=== PATIENT | female | born 1970 | race Caucasian/White ===

== ENCOUNTER 2022-08-04 16:50 | Observation (INO) | payer BC, SELFPAY ==
--- NOTE | ~2022-08-04 | CT_ITS ---
EXAMINATION: CT brain wo con DATE: 08/04/2022 17:49 INDICATION: left facial droop, slurred speech, LKN unknown . TECHNIQUE: Computed tomography (CT) of the head was performed without intravenous contrast. The mA wa s adjusted according to patient size. Iterative reconstruction technique was employed. The dose-lengt h product was 605.33 mGy-cm. COMPARISON: None. FINDINGS: No acute intracranial hemorrhage or extra-axial fluid collection. No hydrocephalus, mass, or herniation. No acute ischemic infarct. Unremarkable dural venous sinus attenuation. No acute osseous abnormality. Right temporal craniotomy. The aerated spaces are clear. Encephalomalacia and scattered punctate calcifications involving the white matter of the right fronta l lobe, right insula, and right caudate head/basal ganglia, presumably related to postsurgical/post t herapeutic changes. IMPRESSION: No definite acute intracranial process. Presumed postsurgical/post therapeutic changes in the right f rontal lobe, right insular white matter, and right basal ganglia. Sensitivity would be increased if o utside studies are available for comparison. Consider MRI of the brain without and with contrast for better evaluation of subtle acute disease and/or recurrent tumor. Reviewed, dictated and finalized at location K. IMPRESSION: No definite acute intracranial process. Presumed postsurgical/post therapeutic changes in the right frontal lobe, right insular white matter, and right basal ganglia. Sensitivity would be increased if outside studies are available for co mparison. Consider MRI of the brain without and with contrast for better evalua tion of subtle acute disease and/or recurrent tumor.
--- NOTE | ~2022-08-04 | XR_ITS ---
EXAMINATION: XR chest 1V Exam Date/Time: 08/04/2022 17:44 CDT HISTORY: Suspected CVA. No chest complaints. Comparison: None available. RESULT: Lines, tubes, and devices: None. Lungs and pleura: Patient is rotated to the left. Clear. Cardiomediastinal silhouette: Unremarkable. Other: No acute osseous or upper abdominal finding. IMPRESSION: No acute cardiopulmonary process. Reviewed, dictated and finalized at location K.
--- NOTE | ~2022-08-04 | CT_ITS ---
EXAMINATION: CTA brain carotid DATE: 08/04/2022 22:29 INDICATION: Left facial weakness. Dysarthria. TECHNIQUE: Computed tomographic angiography (CTA) of the head was performed with 100 mL Omnipaque-350 intravenous contrast. CTA of the neck was performed with intravenous contrast. Automated exposure co ntrol and iterative reconstruction technique were employed. The dose-length product was 1170.02 mGy-c m. Maximum intensity projection and volume rendered 3D-reconstructions were created by the techncheyenne alex on a separate workstation. COMPARISON: Head CT 08/04/2022 FINDINGS: HEAD CTA: There is chronic encephalomalacia in the right frontal lobe and right insula. There is an i nfarct in the right basal ganglia, likely subacute or chronic. There is no intracranial hemorrhage or abnormal mass lesion. There is ex vacuo dilatation of anterior body and frontal horn of right latera l ventricle. The paranasal sinuses are clear. The orbits are normal. The mastoid air cells are normal . There are changes of right-sided craniotomy. The vertebral arteries are codominant. There is no sig nificant stenosis of basilar artery or the posterior cerebral arteries. Right posterior communicating artery is normal. A left posterior communicating arteries are not identified. There is no significan t stenosis of the intracranial internal carotid arteries. Anterior communicating artery is normal. Th ere is no aneurysm. NECK CTA: There are no pathologically enlarged lymph nodes. There is no significant stenosis of the v ertebral arteries. There is plaque in the proximal internal carotid arteries. There is 0% stenosis of the proximal right internal carotid artery relative to normal distal artery lumen diameter (NASCET c riteria). There is 0% stenosis of the proximal left internal carotid artery relative to normal distal artery lumen diameter. There is moderate cervical spondylosis. IMPRESSION: 1. Chronic encephalomalacia in the right frontal lobe and right insula. Infarct in the right basal ga nglia, likely subacute or chronic. 2. No aneurysm or significant intracranial arterial stenosis. 3. 0% stenosis of the proximal internal carotid arteries relative to normal distal artery lumen diame ters (NASCET criteria). Reviewed, dictated and finalized at location A. IMPRESSION: 1. Chronic encephalomalacia in the right frontal lobe and right insula. Infarct in the right basal ganglia, likely subacute or chronic. 2. No aneurysm or significant intracranial arterial stenosis. 3. 0% stenosis of the proximal internal carotid arteries relative to normal dis maggi artery lumen diameters (NASCET criteria).
--- NOTE | ~2022-08-04 | CT_ITS ---
EXAMINATION: CT brain wo con DATE: 08/06/2022 03:47 INDICATION: Neurological changes. Astrocytoma. TECHNIQUE: Computed tomography (CT) of the head was performed without intravenous contrast. The mA wa s adjusted according to patient size. Iterative reconstruction technique was employed. The dose-lengt h product was 1210.67 mGy-cm. COMPARISON: Head CT 08/04/2022 FINDINGS: There are changes of right-sided craniotomy. There is chronic encephalomalacia involving th e right frontal lobe and right insula. There is low-attenuation involving the right basal ganglia, an terior limb right internal capsule, and right frontal lobe deep white matter. There is no intracrania l hemorrhage. The ventricles are normal in size. The orbits are normal. The mastoid air cells are nor mal. There is cerumen in the external auditory canals. The paranasal sinuses are clear. IMPRESSION: 1. Stable distribution of low attenuation involving the right basal ganglia, anterior limb right inte rnal capsule, and right frontal lobe deep white matter. The differential diagnosis includes glioma, t reatment changes, and age-indeterminate infarct. Comparison with outside imaging is recommended. 2. Right-sided craniotomy with chronic encephalomalacia involving the right frontal lobe and right in sula. Reviewed, dictated and finalized at location A. IMPRESSION: 1. Stable distribution of low attenuation involving the right basal ganglia, an terior limb right internal capsule, and right frontal lobe deep white matter. T he differential diagnosis includes glioma, treatment changes, and age-indetermi desi infarct. Comparison with outside imaging is recommended. 2. Right-sided craniotomy with chronic encephalomalacia involving the right fro ntal lobe and right insula.
--- NOTE | 2022-08-04 16:55 | ECG_ITS ---
Measurements Intervals [place] Rate: 98 P: 53 OH: 145 QRS: 7 QRSD: 84 T: 48 QT: 331 QTc: 424 Interpretive Statements SINUS RHYTHM LOW QRS VOLTAGE IN PRECORDIAL LEADS [QRS DEFLECTION < 1.0 mV IN CHEST LEADS] NO PREVIOUS ECG AVAILABLE FOR COMPARISON Electronically Signed On 08-05-2022 12:10:01 CDT by Jaren Vogt M.D.
[2022-08-04 17:14] VITALS: BP 144/98; PULSE 102; RESP 18; TEMP 36.5; O2SAT 100
[2022-08-04 17:23] LABS: Basophils Absolute Auto 0.1 K/mm3 (0.0-0.1); Basophils Percent Auto 0.6 % (0.2-1.2); Eosinophils Absolute Auto 0.2 K/mm3 (0-0.3); Eosinophils Percent Auto 1.8 % (0-4.4); Hematocrit 42.5 % (37.0-47.0); Immature Granulocyte Absolute 0.04 K/mm3 (0.00-0.031); Immature Granulocyte Percent A 0.4 % (0-0.5); Lymphocytes Absolute Auto 2.11 K/mm3 (0.9-3.2); Lymphocytes Percent Auto 18.5 % (18.3-44.2); Mean Corpuscular HGB Conc 32.9 g/dl (32-36); Monocytes Percent Auto 8.5 % (2.6-8.5); Neutrophils Percent Auto 70.2 % (45.5-73.1); Platelet Count Result 302 k/mm3 (150-375); Red Blood Count 4.67 M/mm3 (4.2-5.4); Red Cell Distribution Width 12.9 % (11.5-14.5); White Blood Count 11.4 K/mm3 (4.5-10.0)
[2022-08-04 17:33] LABS: Alanine Aminotransferase 48 U/L (6-35); Albumin Level 4.8 g/dL (3.5-5.1); Alkaline Phosphatase 146 U/L (38-126); Anion Gap 11 mmol/L (8-16); Aspartate Amino Transferase 42 U/L (14-36); Bilirubin,Total 0.6 mg/dL (0.2-1.3); Blood Urea Nitrogen 13 mg/dL (7-17); Calcium 9.3 mg/dL (8.4-10.2); Carbon Dioxide 26 mmol/L (22-30); Chloride 101 mmol/L (98-107); Estimated CRCL calculation 100 ml/min; Estimated Glomerular Filt Rate > 60; Glucose 114 mg/dL (65-110); Potassium 3.9 mmol/L (3.4-5.0); Sodium 138 mmol/L (137-145)
[2022-08-04 17:34] LABS: Partial Thromboplastin Time 24.8 SECONDS (22.3-36.8); Prothrombin Time 12.4 Seconds (11.1-14.7)
[2022-08-04 17:44] LABS: Troponin I < 0.012 ng/mL (0.000-0.034)
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
[2022-08-04 20:41] VITALS: BP 150/106; PULSE 95; RESP 20; O2SAT 97
--- NOTE | 2022-08-04 21:10 | PC.NURSE ---
Patient accepted to [facility] - On waitlist for a bed.
--- NOTE | 2022-08-04 21:47 | PC.NURSE ---
Spoke with Brunilda at [facility] transfer center. Updated on patient status provided. Informed that patient still waiting on bed and is likely not to transfer tonight due to wait list.
[2022-08-04 21:52] VITALS: BP 120/58; PULSE 95; RESP 21; O2SAT 96
[2022-08-05] VITALS (12 sets, daily range): BP systolic 134–155; BP diastolic 78–95; PULSE 77–99; RESP 15–20; TEMP 36.7–37.2; O2SAT 97–98; BMI 33.2
--- NOTE | 2022-08-05 10:22 | PC.NURSE ---
[facility] called and stated there is no oncology beds at this time.
--- NOTE | 2022-08-05 11:34 | PC.NURSE ---
lunch tray ordered at 1137
--- NOTE | 2022-08-05 15:03 | PC.NURSE ---
no beds at [facility] remains on waitlist
--- NOTE | 2022-08-05 19:34 | PC.NURSE ---
Introduced self to patient. Patient and family requesting to speak with doctor about care plan. Provider made aware.
--- NOTE | 2022-08-05 22:38 | ADMGEN ---
This patient, Aniya Carrero, was admitted to Medical Room 250-01. Patient/family oriented to hospital policies and general routines including ID bracelet, bed and alarms, visiting hours, pain management, procedures, bathroom and other care routines, personal items, smoking policy, room service/diet, and visiting hours. Information on how to activate the Rapid Response Team has been discussed. Patient/Family are encouraged to report perceived risks to care and to ask questions if they do not understand what they are told or what they should do.
[2022-08-06] VITALS: PULSE 75
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
[2022-08-06 03:54] VITALS: BP 136/83; PULSE 77; RESP 18; TEMP 36.8; O2SAT 96
[2022-08-06 04:00] VITALS: PULSE 91
--- NOTE | 2022-08-06 04:23 | PC.NURSE ---
Dr Lemos notified of results of second head CT show possible acute infarct, results called by radiologist Dr Vickers to this nurse.
--- NOTE | 2022-08-06 04:36 | PC.NURSE ---
Pt to transfer to [facility] [phone]. Report called to Rosy SAEZ at [phone], pt transported via [facility] with a left forearm IV access and all personal belongings.
== END 2022-08-06 04:40 | disposition short-term general hospital (02) ==
LOC: ANHED 08-05 13:23 → ANH2MED 08-05 21:55
PROVIDERS: Family Medicine; Admitting Provider Internal Medicine; Emergency Provider General Practice; Visit Provider Internal Medicine
DX: I63.9 Cerebral infarction, unspecified (principal); C71.9 Malignant neoplasm of brain, unspecified; F41.9 Anxiety disorder, unspecified; F32.A Depression, unspecified; K21.9 Gastro-esophageal reflux disease without esophagitis; M62.838 Other muscle spasm; E66.9 Obesity, unspecified; Z68.33 Body mass index [BMI] 33.0-33.9, adult; L40.9 Psoriasis, unspecified; E55.9 Vitamin D deficiency, unspecified; Z92.3 Personal history of irradiation; G93.89 Other specified disorders of brain; F10.90 Alcohol use, unspecified, uncomplicated; Z79.899 Other long term (current) drug therapy
CPT/HCPCS: 36415; 70450; 70496; 70498; 71045; 80053; 81025; 84484; 85025; 85610; 85730; 93005; 99285; G0378; Q9967